=== PATIENT | male | born 1980 | race Caucasian/White ===

== ENCOUNTER 2019-04-23 14:50 | Emergency (ER) | payer MEDICAID ==
[~2019-04-23] VITALS: Ht 170.2 cm; Wt 82.9 kg
[~2019-04-23 14:50] MED LIST: ALBU18HF INHALATION; AZIT250T PO; PRED20TA PO
[2019-04-23 14:54] VITALS: Ht 170.2 cm; Wt 82.9 kg
[2019-04-23] MEDS ORDERED: ALBUTEROL 0.5% (NEB) 2.5 MG/0.5 ML AMP INH STA ×2 (15:29→17:42)
[2019-04-23] MEDS ORDERED: predniSONE 20 MG TAB PO STA (15:29)
[2019-04-23] MEDS ORDERED: IPRATROPIUM (NEB) 0.5 MG/2.5 ML AMP INH STA ×2 (15:29→17:42)
[2019-04-23 19:55] VITALS: BP 106/62; PULSE 101; RESP 15
== END 2019-04-23 20:04 | disposition home or self-care (01) ==
LOC: E/R 14:50
DX: J44.1 Chronic obstructive pulmonary disease with (acute) exacerbation (principal)
CPT/HCPCS: 71045; 94644; 94645; J7512; Z7502; Z7610